=== PATIENT | female | born 1945 | race Caucasian/White ===

== ENCOUNTER → 2019-05-27 17:36 | Outpatient (CLI) | payer MEDICARE, BC, SELFPAY ==
--- NOTE | ~2019-05-27 | MR_ITS ---
EXAMINATION: MR shoulder LT wo con DATE: 05/27/2019 18:55 INDICATION: Analyzed left shoulder pain and limited range of motion TECHNIQUE: Magnetic resonance imaging (MRI) of the left shoulder was performed without intravenous co ntrast. Sequences included axial PD-weighted FS FSE, coronal oblique PD-weighted FS FSE, coronal obli que T2-weighted FS FSE, sagittal PD-weighted FS FSE, and sagittal T1-weighted SE. COMPARISON: None. FINDINGS: Coracoacromial arch: The acromion undersurface is curved in morphology (type II). There are small subacromial spurs along the acromial insertion of the normal coracoacromial ligament. Moderate acromioclavicular osteoarthrit is. Rotator cuff: Severe supraspinatus and infraspinatus tendinopathy. Mild intrasubstance tear at the distal aspect of the infraspinatus tendon which appears attenuated distally with subtle shallow concavity to the burs al surface and the distal 1.5 cm the tendon. No discrete fluid signal intensity tear defect or retrac di tendon tear margin appreciated. There is however fluid within a intrasubstance small ganglion cys t measuring 2 mm maximal diameter which extends approximately 4 cm medially from the region of the fo otplate within the tendon along a longitudinal split tear plane. The teres minor and subscapularis te ndons are normal. Normal rotator cuff muscle bulk and signal. Biceps tendon, glenoid labrum and glenohumeral cartilage: Long head of the biceps tendon is normal. Degeneration of the superior glenoid labrum with amorphous increased signal more prominent anteriorly within the liver appears small and to lesser degree transit bus driver iorly where the labrum appears thickened. Mild glenohumeral osteoarthritis with partial thickness car tilage loss with relatively smooth chondral surface and without degenerative subarticular changes eric ng the cephalad aspect of the humeral head and at the central aspect of the glenoid. Additional parti al thickness cartilage loss with mild chondral surface irregularity at the anterosuperior glenoid. Sm all marginal osteophytes along the inferior humeral head. Fluid: Small glenohumeral joint effusion with synovitis and likely loose bodies at the deep subscapular rece ss of the joint space. 12 x 7 x 5 mm loose body. Via proportional small amount of fluid in the long h ead biceps tendon sheath. Mild increased fluid signal in the subacromial/subdeltoid bursa consistent with minimal bursitis. Small joint effusion at the acromioclavicular joint with a few small ganglion cysts extending inferomedially from the inferior aspect of the joint space. Bones: Alignment is normal. No fracture or pathologic marrow replacing process. Mild cystic change at the gr eater tuberosity. Additional mild degenerative cystic change at the lateral head of the clavicle. IMPRESSION: 1. Severe supraspinatus and infraspinatus tendinopathy with secondary signs consistent with small mil d intrasubstance tear of the distal infraspinatus tendon. 2. Mild to moderate left glenohumeral osteoarthritis with degenerative tearing of the superior glenoi d labrum. 2. Moderate acromioclavicular osteoarthritis. Reviewed, dictated and finalized at location A. [employer] TE[employer]ICIAN IMPRESSION: 1. Severe supraspinatus and infraspinatus tendinopathy with secondary signs con sistent with small mild intrasubstance tear of the distal infraspinatus tendon. 2. Mild to moderate left glenohumeral osteoarthritis with degenerative tearing of the superior glenoid labrum. 2. Moderate acromioclavicular osteoarthritis.
== END ==
PROVIDERS: PCP Family Medicine; Visit Provider Orthopaedic Surgery
DX: M19.012 Primary osteoarthritis, left shoulder (principal); M25.512 Pain in left shoulder
CPT/HCPCS: 73221